=== PATIENT | female | born 1955 | race Caucasian/White ===

== ENCOUNTER 2019-10-01 16:16 | Emergency (ER) | payer BC ==
[~2019-10-01] VITALS: Ht 167.6 cm; Wt 111.1 kg
[~2019-10-01 16:16] MED LIST: ESTRADIOL1 EA10 TD; SYNTHROID125 MCG PO
--- NOTE | 2019-10-02 18:10 | EKG ---
[facility] [address] [facility] [place] [address] Signed Normal sinus rhythm with sinus arrhythmia Nonspecific ST abnormality Abnormal ECG When compared with ECG of 01-OCT-2019 16:22, (Unconfirmed) Sinus rhythm has replaced Atrial fibrillation Vent. rate has decreased BY [address] no longer depressed in Lateral leads Nonspecific T wave abnormality no longer evident in Inferior leads Confirmed by COLT PINTO MD ([id number]) on 10/02/2019 6:10:31 PM Electronically Signed By: COLT PINTO MD 10/02/191809 PATIENT NAME: SHIRLEY RIOS Electrocardiogram DATE OF : 57 PHYSICIAN: COLT PINTO MD REPORT #: [id number] REPORT IS CONFIDENTIAL AND NOT TO BE RELEASED WITHOUT AUTHORIZATION
--- NOTE | 2019-10-02 18:10 | EKG ---
[facility] [address] [facility] [place], [place] [address] Signed Atrial fibrillation with rapid ventricular response Marked ST abnormality, possible lateral subendocardial injury Abnormal ECG No previous ECGs available Confirmed by COLT PINTO MD ([id number]) on 10/02/2019 6:10:10 PM Electronically Signed By: COLT PINTO MD 10/02/19 1810 PATIENT NAME: SHIRLEY RIOS Electrocardiogram DATE OF : 57 PHYSICIAN: COLT PINTO MD REPORT #: [id number] REPORT IS CONFIDENTIAL AND NOT TO BE RELEASED WITHOUT AUTHORIZATION
== END 2019-10-01 19:22 | disposition home or self-care (01) ==
LOC: ED 16:16
DX: I48.91 Unspecified atrial fibrillation (principal); E03.9 Hypothyroidism, unspecified; Z79.899 Other long term (current) drug therapy
CPT/HCPCS: 80053; 83735; 84443; 84484; 85025; 93005; 93010; 96374; 96375; 96376; 99285-25; J3475; J7030

== ENCOUNTER 2021-09-08 07:57 | Emergency (ER) | payer OTHER, BC ==
[~2021-09-08] VITALS: Ht 167.6 cm; Wt 111.1 kg
--- OUTSIDE RECORDS SUMMARY | 2021-09-08 08:00 | XMS ---
PreManage Notification: SHIRLEY RIOS Security Investigation Specialist Events No recent Security Events currently on file CRITERIA MET - [facility] CARE PROVIDERS There are no care providers on record at this time. Marcella has no Care Guidelines for this patient. Thaddeus VISIT COUNT (12 MO.) 1 MARÍA Gay TOTAL 1 NOTE: Visits indicate total known visits. ED/C VISIT TRACKING (12 MO.) 09/08/2021 07:58 MARÍA Alejandre OR TYPE: Emergency COMPLAINT: - L EYEBROW, L KNEE INJURY INPATIENT VISIT TRACKING (12 MO.) No inpatient visits to display in this time frame [email or web address]
[2021-09-08] MEDS ORDERED: SYNTHROID112 MCG PO (08:11)
[2021-09-08] MEDS ORDERED: METOPROLOL SUCC50 MG PO (08:11)
== END 2021-09-08 09:07 | disposition home or self-care (01) ==
LOC: ED 07:57
DX: S01.112A Laceration without foreign body of left eyelid and periocular area, initial encounter (principal); Z23 Encounter for immunization; W01.198A Fall on same level from slipping, tripping and stumbling with subsequent striking against other object, initial encounter; Z79.899 Other long term (current) drug therapy
CPT/HCPCS: 12011; 90471; 90715; 99282

== ENCOUNTER 2024-12-12 08:54 | Day surgery (SDC) | payer BC ==
[~2024-12-12] VITALS: Ht 167.6 cm; Wt 94.5 kg
[~2024-12-12 08:54] MED LIST changes: +CALCIUM 500-VI1 EAC3 PO; +FISH OIL 1,0001 EAC6 PO; +IBLOOD GLUCOSE TEST STRIP 1 EA TEST VI PRN; +IMMUNERX CAPS250 MCG PO; +LACTATED RINGER'S 1,000 ML IV SCH; +LIDOCAINE HCL 1% 5 ML SDV INJ ONE; +MAGOX 400400 MG PO; +METOPROLOL SUCC50 MG PO; +MIDAZOLAM HCL 5 MG/5 ML VIAL IV PRN; +SYNTHROID112 MCG PO; +TURMERIC500 M2 PO; +VITAMIN C500 M1 PO; +fentaNYL citrate 100 MCG/2 ML VIAL IV PRN
[2024-12-12 09:15] VITALS: BP 144/75
[2024-12-12] MEDS ORDERED: ELIQUIS5 MG PO (09:19)
[2024-12-12] MEDS ORDERED: fentaNYL citrate 100 MCG/2 ML VIAL ONE (11:03)
[2024-12-12] MEDS ORDERED: MIDAZOLAM HCL 5 MG/5 ML VIAL ONE (11:03)
--- NOTE | 2024-12-12 12:13 | NUR ---
12/12/24 [id number] Greer Sifuentes 1208-PATIENT ARRIVED TO PACU ON 2L NC RR EVEN PATIENT DROWSY DENIES PAIN OR NAUSEA. LAYING LEFT LATERAL ABDOMEN SOFT. IVF INFUSING. SINUS LELE HR 50'S. PATIENT DOZES BACK TO SLEEP
[2024-12-12 12:49] VITALS: BP 159/70
--- NOTE | 2024-12-13 10:09 | OR ---
[facility] [address] [place], [place] [address] Signed DATE OF OPERATION: 12/12/2024 SURGEON: Deborah Meneses MD PREOPERATIVE DIAGNOSIS: Colon screening. POSTOPERATIVE DIAGNOSES: 1. Sigmoid diverticula. 2. Small polyp in the rectosigmoid. PROCEDURE: Total colonoscopy to cecum with cold morcellation polypectomy x1. ANESTHESIA: Intravenous sedation, fentanyl 150 mcg, Versed 8 mg. 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 She is a patient of STEPHANIE Sage. She has undergone colonoscopy last in 2014, which was normal. She has no current symptoms of bleeding, diarrhea, or constipation and no family history of colon cancer. She is here for screening colonoscopy. She understands the risk of bleeding, infection, and perforation. FINDINGS: The prep was good. Complete colonoscopy was undertaken of the cecum with full intubation of the cecum. There were diverticula of the sigmoid and left colon. There was a small polyp of the rectosigmoid, which was excised with cold morcellation technique. The remaining colon was normal. DESCRIPTION OF PROCEDURE: The patient was brought to the endoscopy suite and placed in lateral decubitus position, given intravenous sedation to the point of slurred speech and nystagmus. Full cardiopulmonary monitoring was done. Digital rectal examination was performed showing no abnormality. An Olympus video colonoscope was passed in the rectum and manipulated throughout the colon ultimately intubating the cecum itself. The ileocecal valve and appendiceal orifice were normal. Scope was withdrawn. Examination throughout showed no sign of abnormality into the left colon where diverticula were once again seen. Diverticula are Electronically Signed By: DEBORAH MENESES MD 12/13/24 1009 PATIENT NAME: SHIRLEY RIOS OPERATIVE REPORT DATE OF : 57 REPORT #: [id number] PHYSICIAN: DEBORAH MENESES MD PCP: EDGAR SARMIENTO REPORT IS CONFIDENTIAL AND NOT TO BE RELEASED WITHOUT AUTHORIZATION [facility] [address] [place], [place] [address] Signed more dense in the sigmoid. There was a small polyp in the rectosigmoid, which was excised with cold morcellation technique. Retroflexed view of the rectum was normal. Scope was removed. The patient was taken to the recovery room in good condition. CONCLUDING DIAGNOSIS: Polyps x1 and diverticulosis. PLAN: Recommend repeat colonoscopy in 10 years, sooner if symptoms should develop. Recommend high-fiber diet as well. The patient will return to the ongoing care of STEPHANIE Sage. MD YAKOV Weiss/ROBIN /[id number] cc: STEPHANIE Sage Copies: EDGAR SARMIENTO ~ Electronically Signed By: DEBORAH MENESES MD 12/13/24 1009 PATIENT NAME: SHIRLEY RIOS OPERATIVE REPORT DATE OF : 57 REPORT #: [id number] PHYSICIAN: DEBORAH MENESES MD PCP: EDGAR SARMIENTO REPORT IS CONFIDENTIAL AND NOT TO BE RELEASED WITHOUT AUTHORIZATION
--- NOTE | 2024-12-14 12:18 | PATH ---
[facility] [facility] [address] [facility] [place], [place] [address] Signed SPECIMEN(S): A SIGMOID SPECIMEN SOURCE: A. SIGMOID CLINICAL HISTORY: Diverticulosis, polyp FINAL PATHOLOGIC DIAGNOSIS: Sigmoid biopsy: - Hyperplastic polyp (one fragment). JVR:clv MICROSCOPIC EXAMINATION: Histologic sections of all submitted blocks are examined by light microscopy. These findings, together with the gross examination, support the pathologic diagnosis. GROSS DESCRIPTION: The specimen, labeled and designated "linette Rios," is received in formalin and consists of one man soft tissue fragment, 0.2 cm. Entirely submitted in (A1). VB (under the direct supervision of a pathologist) The Gross Description was prepared using a voice recognition system. The report was reviewed for accuracy; however, sound-alike word errors, addition and/or deletions may occur. If there is any question about this report, please contact Client Services. PERFORMING LABORATORY: Technical component was performed by [facility], [address] [place] [id number] (CLIA# [id number]). Professional interpretation was performed by [facility], [address] [place] [id number] (CLIA#: [id number]). Diagnostician: Slim Mead MD Pathologist Electronically Signed 12/14/2024 Copies: PATIENT NAME: SHIRLEY RIOS PATHOLOGY DATE OF : 57 REPORT #: [id number] PHYSICIAN: DENISE PATHOLOGY PCP: EDGAR SARMIENTO REPORT IS CONFIDENTIAL AND NOT TO BE RELEASED WITHOUT AUTHORIZATION [address] [address] Signed ~ PATIENT NAME: SHIRLEY RIOS PATHOLOGY DATE OF : 57 REPORT #: [id number] PHYSICIAN: DENISE PATHOLOGY PCP: EDGAR SARMIENTO REPORT IS CONFIDENTIAL AND NOT TO BE RELEASED WITHOUT AUTHORIZATION
== END 2024-12-12 12:55 | disposition home or self-care (01) ==
LOC: DS 08:54
PROVIDERS: ATTEND Surgery
PROC: 0DBN8ZX Excision of Sigmoid Colon, Via Natural or Artificial Opening Endoscopic, Diagnostic (ICD-10-PCS; principal; 2024-12-12 11:30)
DX: Z12.11 Encounter for screening for malignant neoplasm of colon (principal); K63.5 Polyp of colon; K57.30 Diverticulosis of large intestine without perforation or abscess without bleeding; I48.91 Unspecified atrial fibrillation; E89.0 Postprocedural hypothyroidism; Z79.01 Long term (current) use of anticoagulants; Z79.890 Hormone replacement therapy; Z79.899 Other long term (current) drug therapy
CPT/HCPCS: 99153; G0500; J2250; J3010; J7121